=== PATIENT | male | born 1935 | race Caucasian/White ===

== ENCOUNTER → 2018-07-19 13:41 | Outpatient (CLI) | payer OTHER, SELFPAY ==
--- NOTE | 2018-07-19 13:44 | DI.RAD.S_ITS ---
PROCEDURE: XR LUMBAR SPINE MIN 4V INDICATIONS: Eval TECHNIQUE: 5 views of the lumbar spine were acquired. COMPARISON: None. FINDINGS: Bones: 5 nonrib-bearing vertebrae are present. There is straightening of normal lumbar lordosis. Partial bony fusion at L4-5 level is seen. Degenerative disc disease throughout lumbar spine is noted. No acute compression fracture. No suspicious bony lesions. Prior fixation of right sacrum is seen with 2 surgical screws traversing the right sacroiliac joint. Soft tissues: Overlying bowel gas pattern is normal. No suspicious soft tissue calcifications. Oblique images: No pars defects. Right-sided neural foramina narrowing at L4-5 and L5-S1 levels were likely present. IMPRESSION: Degenerative disc disease throughout lumbar spine. No acute compression fracture or spondylolisthesis. Suggestion of right-sided neuroforaminal narrowing in lower lumbar spine. Dictated by: Venkat Cooper M.D. on 07/19/2018 at 15:12 Approved by: Venkat Cooper M.D. on 07/19/2018 at 15:18
--- NOTE | 2018-07-19 13:44 | DI.RAD.S_ITS ---
PROCEDURE: XR CERVICAL SPINE 4V OR 5V INDICATIONS: Eval TECHNIQUE: 5 views of the cervical spine acquired. COMPARISON: None. FINDINGS: Bones: There is bony fusion at C5-6 level. Partial bony union at C4-5 level is also seen. Villalba-white anterolisthesis of C3 on C4 is noted. Degenerative endplate changes are noted throughout cervical spine more prominent at C4-5 and C6-7 levels. Oblique images demonstrate left-sided neuroforaminal narrowing at C4-5 level. No acute compression fracture. Soft tissues: No prevertebral soft tissue swelling. IMPRESSION: Complete bony fusion of C5-6 level and partial bony fusion at C4-5 level. Degenerative disc disease throughout cervical spine. No gross acute compression fracture. Villalba-white anterolisthesis of C3 on C4. Suggestion of left-sided neuroforamina narrowing at C4-5 level. Dictated by: Venkat Cooper M.D. on 07/19/2018 at 15:06 Approved by: Venkat Cooper M.D. on 07/19/2018 at 15:12
== END ==
PROVIDERS: PCP Family Medicine; Visit Provider Physical Medicine & Rehabilitation
DX: M47.22 Other spondylosis with radiculopathy, cervical region (principal); M50.122 Cervical disc disorder at C5-C6 level with radiculopathy; M51.16 Intervertebral disc disorders with radiculopathy, lumbar region; M47.27 Other spondylosis with radiculopathy, lumbosacral region; M43.12 Spondylolisthesis, cervical region; Z98.1 Arthrodesis status
CPT/HCPCS: 72050; 72110; 99214

== ENCOUNTER → 2018-08-01 16:25 | Outpatient (CLI) | payer OTHER, SELFPAY ==
--- NOTE | 2018-08-01 16:28 | DI.MRI.S_ITS ---
PROCEDURE: MR LUMBAR SPINE WO CON INDICATIONS: Eval TECHNIQUE: Noncontrast sagittal T1 spin echo and T2 fast echo, sagittal STIR, axial T1 and T2 fast spin echo through the lumbar spine. In cases with scoliosis, additional coronal T2 fast spin echo may be performed. COMPARISON: [facility], MR, MR LUMBAR SPINE WO CON, 10/29/2015, 9:35. [facility], CR, XR LUMBAR SPINE MIN 4V, 07/19/2018, 13:55. FINDINGS: Image quality: Excellent. Alignment and Curvature: Straightening of the normal lumbar lordosis. Trace retrolisthesis of L1 on L2 and L2 on L3. Chronic partial osseous fusion of the L4-L5 vertebral bodies Bone Marrow: Suboptimal evaluation due to right sacroiliac joint fixation screws and associated susceptibility artifact. Marrow is of normal overall signal. No acute vertebral body compression fractures. Spinal Cord: Conus medullaris terminates at the L1-L2 level. Visualized cord demonstrates normal signal and size. Paraspinous Soft Tissues: Presumed bilateral T2 hyperintense renal cysts. L1-L2: Bilateral facet disease. Broad-based posterior disc bulge and mild central canal narrowing. Mild narrowing of both lateral recesses although symmetric appearance. Mild bilateral foraminal narrowing. No interval change L2-L3: The broad-based posterior disc bulge and bilateral facet arthropathy. Mild dorsal epidural lipomatosis. There is moderate canal stenosis with associated compression of the cauda equina. There is also asymmetric narrowing of the lateral recesses, right greater than left with possible compression of the descending right L3 nerve root. Moderate narrowing of the left neural foramen with possible minimal compression of the exiting nerve root. There is moderate right foraminal stenosis with mild compression of the exiting nerve root. No interval change L3-L4: Broad-based posterior disc bulge and bilateral facet arthropathy. Mild narrowing of the canal. There is asymmetric mild right lateral recess narrowing. Minimal if any left lateral recess narrowing. Mild bilateral foraminal stenoses. No interval change L4-L5: Broad-based posterior disc bulge bilateral facet arthropathy. Mild central canal narrowing. Moderate partial effacement of both lateral recesses with possible compression of the descending nerve roots although the appearance suggests right greater than left. Mild right foraminal narrowing, and moderate left foraminal stenosis with minimal compression of the exiting nerve root. No interval change. L5-S1: No high-grade central canal stenosis. The lateral recesses are not well seen in particular on the right due to field distortion from hardware artifact. However, there is probably unchanged appearance of right paramedian disc protrusion and slight posterior displacement of the descending S1 nerve root on the right. There is probable mild bilateral foraminal narrowing and compression of the exiting left L5 nerve root. Overall, no interval change IMPRESSION: Diffuse lumbar spondylosis and facet. Overall, no definite interval change as detailed above by spinal level Trace retrolisthesis of L1 on L2 and L2 on L3. Dictated by: Jaspreet Harmon M.D. on 08/02/2018 at 8:41 Approved by: Jaspreet Harmon M.D. on 08/02/2018 at 8:53
== END ==
PROVIDERS: PCP Family Medicine; Visit Provider Physical Medicine & Rehabilitation
DX: M47.27 Other spondylosis with radiculopathy, lumbosacral region (principal); M47.26 Other spondylosis with radiculopathy, lumbar region
CPT/HCPCS: 72148

== ENCOUNTER 2018-08-20 09:25 | Outpatient (CLI) | payer OTHER, SELFPAY ==
[2018-08-20] VITALS (9 sets, daily range): BP systolic 101–144; BP diastolic 52–83; PULSE 55–73; RESP 16–18; TEMP 36.1; O2SAT 95–99
--- NOTE | 2018-08-20 09:26 | DI.RAD.S_ITS ---
PROCEDURE: PAIN C/T INTERLAMINAR INJECT INDICATIONS: SPONDYLSIS FINDINGS: Fluoroscopic spot filming was performed to verify placement of spinal needles at the C6-C7 level(s), as labeled on the films. Appropriate location(s) of the needle tip(s) was confirmed by injection of iodinated contrast. IMPRESSION: Fluoroscopy for pain management. Dictated by: Devante Andres M.D. on 08/20/2018 at 11:41 Approved by: Devante Andres M.D. on 08/20/2018 at 12:03
[2018-08-20] MEDS: MIDAZOLAM 5 MG/5 ML VIAL IV (10:22)
--- NOTE | 2018-08-20 10:25 | PC.NURSE ---
Pt returned from procedure awake and alert, able to move from W/C to chair with standby assist. Resumed monitoring from Becca BAKER.
[2018-08-20] MEDS: DEXAMETHASONE 10 MG/ML VIAL 20 MG INJ (10:28)
[2018-08-20] MEDS: IOPAMIDOL 15 ML VIAL 3 ML INJ (10:28)
--- NOTE | 2018-08-20 10:32 | PC.NURSE ---
ASSISTING PT OFF TABLE AND TRANSPORTING TO POST PROC AREA IN STABLE CONDITION
--- NOTE | 2018-08-20 10:35 | PM.PROC.1 ---
Procedures Date/Time Date of procedure: 08/20/18 Time of procedure: 10:35 General Procedure description: PREOP DIAGNOSIS 1. CERVICAL STENOSIS, 2. CERVICAL HNP WITH UPPER EXTREMITY RADICULAR FEATURES, POST OP DIAGNOSIS 1. CERVICAL STENOSIS, 2. CERVICAL HNP WITH UPPER EXTREMITY RADICULAR FEATURES, PROCEDURES 1. FLUORSCOPICALLY GUIDED CONTRAST CONTROLLED INTERLAMINAR EPIDURAL STEROID INJECTION - C6/7 TL HELENE PHYSICIAN: Kenton Allen, DO INDICATIONS Arvid is referred by Dr. Bowser for treatment of Cervical Stenosis with Upper Extremity Paresthesias. FINDINGS Cervical Stenosis due to disc deterioration and nerve root irritation and nerve root irritation DESCRIPTION OF PROCEDURE Fluoroscopically guided, contrast-controlled C6/7 translaminar epidural steroid injection with conscious sedation. Following denial of allergy and review of potential side effects and complications, including, but not necessarily limited to, infection, allergic reaction, local tissue breakdown, temporary as well as permanent nerve injury, stroke, paralysis, and possible , the patient indicated that patient understood and agreed to proceed. An informed consent document was signed by the patient, witnessed by a nurse, and placed in the patient's chart. Additionally, other treatment options including modalities, medications, and physical therapy were reviewed with the patient. After review of previous anaesthesic history and IV conscious sedation the patient was deemed safe to proceed with todays procedure with IV conscious sedation as ASA class II designation. Safety time-out was performed to confirm patient ID, procedure to be performed and site of procedure. IV sedation was accomplished with a combination of 3mg of Versed administered by the RN after DO order, titrated to patient comfort during the course of the procedure while the patient remained responsive to all verbal commands. In the prone position, following sterile prep and drape of the cervical region, the C6/7 translaminar space was identified fluoroscopically. The skin was anesthetized via a 25-gauge 1.5-inch needle with 1% lidocaine solution. At this point, a 25-gauge, 2.5-inch short bevel spinal needle was atraumatically introduced and advanced under fluoroscopic guidance into epidural space at the C6/7 translaminar space. Depth was confirmed on lateral view. Radiological data, including multiple fluoroscopic views of the cervical spine, reveal a spinal needle at the C6/7 translaminar space. Lateral views then show placement of the needle in the epidural space. Subsequent views show contrast material flowing superiorly and inferiorly in the epidural space. DSA fluoroscopy with live contrast injection, once again, confirmed no vascular or intrathecal uptake. At this point, using loss of resistance technique with saline and air, the epidural space was entered. Following negative aspiration, injection of approximately 1.5 cc of Isovue-200 with live fluoroscopy in the AP view confirmed epidural flow in the epidural space without vascular or intrathecal uptake observed. Subsequently, a test dose of 1 cc of 1% lidocaine solution was injected and patient was observed for two minutes without signs or symptoms of complications, including abdominal pain, shortness of breath, bilateral upper or lower extremity weakness, nausea and vomiting, prior to steroid injection. At this point, 2cc or 20mg of dexamethasone was then injected without incident. The patient tolerated the procedure well without signs or symptoms of complications prior to being transferred to the recovery area for further monitoring, The patient was then transferred to the recovery area where they were observed for an appropriate period of time after the injection. The patient reported a VAS score of 6 prior to the procedure and a post-procedure VAS of 0. Total Fluoroscopy Time: 37.0 seconds Total Conscious Time: 24min POST OP INSTRUCTIONS The patient was provided a Pain Log to continue to record their response to the target-specific procedure prior to follow-up visit with the referring provider. Additionally, specific post-injection care instructions and a contact number to our office were provided if concerns arise regarding possible complications associated with the procedure are suspected. Kenton Allen DO Complications: none
--- NOTE | 2018-08-20 11:06 | PC.NURSE ---
Pt Returned from post procedure awake and alert, able to move from W/C to Chair with standby assist. Resumed monitoring from Becca BAKER.
--- NOTE | 2018-08-21 16:27 | PC.NURSE ---
Follow up call made for post Interlaminar HELENE . Pt reports he is doing good. He also notes the red face but realized it was related to the steroids so wasn't alarmed.
== END 2018-08-20 11:01 ==
PROVIDERS: PCP Family Medicine; Visit Provider Physical Medicine & Rehabilitation
DX: M50.123 Cervical disc disorder at C6-C7 level with radiculopathy (principal); M48.02 Spinal stenosis, cervical region; M47.22 Other spondylosis with radiculopathy, cervical region; R20.2 Paresthesia of skin; Z98.1 Arthrodesis status
CPT/HCPCS: 62321; 99152; J1100; J2250; J3010

== ENCOUNTER 2018-11-14 13:00 | Outpatient (RCR) | payer OTHER, SELFPAY ==
--- NOTE | 2018-11-14 15:48 | PT.OIE ---
Current Diagnoses Mixed incontinence (11/14/18) Provider Visit Care Team Role Provider Type Kirill Bowser MD Primary Care Provider Non-Staff Specialty: Medical Address: [address] [place], [address] Email: Emmanuel Roy MD Attending Provider Physician Specialty: Urology Address: [address] [place] [address], [phone] Email: Physical Therapy Initial Evaluation PT-OP-A Visit Information Start: 11/12/18 13:01 Freq: Status: Active Protocol: Document 11/12/18 13:00 [facility] (Rec: 11/14/18 11:12 [facility] [email or web address]) Out-Patient Physical Therapy Visit Information Visit Information Visit Type Initial Evaluation Visit Note 83 year old male referred to PT for pelvic floor strengthening as he is experiencing mixed urinary incontinence. He is restricting his fluids especially in the evening due to nocturia. He has a history of malignant neoplasm of the prostate. He underwent bladder neck surgery and prostatectomy 02/21/2010. At his last MD visit which was 3 weeks ago he was given pelvic floor strengthening exercises and he feels these are already helping. Visit Start Time 13:00 Visit Stop Time 13:45 Total Visit Minutes 45 Visit Number 1 Evaluation Information Evaluation Date 11/12/18 PT-OP-B Current Condition Start: 11/12/18 13:01 Freq: Status: Active Protocol: Document 11/12/18 13:00 [facility] (Rec: 11/14/18 11:12 [facility] [email or web address]) Current Condition History of Current Condition Onset Date 2009 Current Complaints mixed urinary incontinence History of Current Condition 83 year old male referred to PT for pelvic floor strengthening as he is experiencing mixed urinary incontinence. He is restricting his fluids especially in the evening due to nocturia. He has a history of malignant neoplasm of the prostate. He underwent bladder neck surgery and prostatectomy 02/21/2010. At his last MD visit which was 3 weeks ago he was given pelvic floor strengthening exercises and he feels these are already helping. He was wearing a large pad and changing it 3-4 times per day but now he is down to changing his pad 1 time per day. Leakage is increased with exercise, changing positions such as sit -stand, and a strong urge to void. He leaks in al positions. He is waking 1 time per night now which is much better than it had been. Prior Treatments and Tests PVR 171cc, ASHLEIGH score is 1/25 for severe ED, IPSS is 10/35 Treatment Goals Patient/Caregiver Goals Goals include decreasing urinary incontinence overall with activity level Current Functional Impairments (Reported) Functional Limitations- ADL's limited in activities such as mowing the lawn and activities that require straining Arvid will experince leakage. PT-OP-F Manual Assessment Start: 11/12/18 13:01 Freq: Status: Active Protocol: Document 11/12/18 13:00 [facility] (Rec: 11/14/18 11:12 [facility] [email or web address]) Manual Assessments Soft Tissue Assessment Soft Tissue Mobility Assessment good mobility across the abdominal fascia and supra pubic region PT-OP-I Pelvic Floor Start: 11/12/18 13:01 Freq: Status: Active Protocol: Document 11/12/18 13:00 [facility] (Rec: 11/14/18 11:12 [facility] [email or web address]) Pelvic Floor Assessment Urine Pelvic Floor Surgery Yes Urinary Symptoms Urge Sensation Leakage Size Medium Leakage Cause Cough Exercise Lifting Sneeze Urge Leaks Per Day 3-4 Voiding Frequency every 2-3 hours Nocturia yes Pads Used In 24 Hours 2 Urine Pad Type Depends Contraction Ability Voluntary Contraction Weak Voluntary Relaxation Moderate Manual Muscle Testing Left 3 Manual Muscle Testing Right 3 Manual Muscle Testing Anterior 3 Manual Muscle Testing Posterior 3 Muscle Endurance (Seconds) 4 PT-OP-J Posture/Palpation/Skin Start: 11/12/18 13:01 Freq: Status: Active Protocol: Document 11/12/18 13:00 [facility] (Rec: 11/14/18 11:12 [facility] [email or web address]) Palpation Assessment Location One Palpation Location pelvic floor and subrapubic region Palpation Details palpation of the pelvic floor externally for muscle strength testing, able to find the pelvic floor and facilitate a contraction but difficulty holding a contraction past 4 second hold time. PT-OP-M Strength Start: 11/12/18 13:01 Freq: Status: Active Protocol: Document 11/12/18 13:00 [facility] (Rec: 11/14/18 11:12 [facility] [email or web address]) Trunk Strength Trunk Manual Muscle Testing Testing Position Supine Flexion 3 Fair Core Stabilization poor core stabilization of the transverse abdominal musculature, the patient tends to bulge his abdominal wall out with positional changes PT-OP-Q Treatments Start: 11/12/18 13:01 Freq: Status: Active Protocol: Document 11/12/18 13:00 [facility] (Rec: 11/14/18 15:48 [facility] [email or web address]) Therapeutic Exercises Supine Exercises 2 Supine Exercise Name pelvic floor quick contractions Reps/Minutes x 10 reps 1 Supine Exercise Name pelvic floor 10 second holds Reps/Minutes 10 reps x 10 second hold PT-OP-T Assessment and Plan Start: 11/12/18 13:01 Freq: Status: Active Protocol: Document 11/12/18 13:00 [facility] (Rec: 11/14/18 11:12 [facility] [email or web address]) Physical Therapy Assessment Rehab Potential Rehabilitation Potential Good Impairments Impairments Activity Tolerance Functional Activities Functional Mobility Strength Goals Three Impairment Decreased core stabilization and straining with sit-stand Short Term Goal (STG) Tone is able to properly tighten his lower abdominals instead of increasing intra- abdominal pressure with sit- stand and transitional movements STG Duration 4 weeks Substation Technician Goal (LTG) Tone has improved Inner core stabilization and is able to transition from sit-stand without any leakage LTG Duration 8 weeks Two Impairment Decreased pelvic floor endurance, difficulty holding >4 seconds Short Term Goal (STG) Tone is able to sustain a pelvic floor contraction in supine x 10 seconds STG Duration 4 weeks Care Home Goal (LTG) Tone is able to sustain a pelvic floor contraction in standing x 10 seconds LTG Duration 8 weeks Four Impairment Difficulty with transfers such as sit-stand, strains through the abdominals Substation Technician Goal (LTG) Tone is able to perform 10 sit-stand exercises without use of hands and with a pelvic floor contraction to stabilize his bladder. He is able to perform this exercise without leakage LTG Duration 8 weeks One Impairment Urinary urge and stress incontinence Substation Technician Goal (LTG) With pelvic floor strengthening, Tone has overall decreased c/o urinary incontinence and leakage and is able to decrease to 0-1 pad use per day LTG Duration 8 weeks Assessment Summary Assessment Tone presents to phyiscal therapy today with signs and symptoms of urinary incontinence and pelvic floor weakness. His prostate surgery was in 2009 however he had not started pelvic floor strengthening exercises until he saw his doctor approximately 3 weeks ago. He was given kegel exercises at that time and reports he has seen a lot of progress in these past three weaks. He has been able to decrease from 3-4 pads per day to 1-2 pads per day. He seeks further guidance on strengthening his pelvic floor. With examination today Tone is able to facilitate his pelvic floor but he has difficulty holding greater than 5 seconds . He reports he leaks with transitional movements such as sit-stand or getting out of the car. When looking at his strategy for sit-stand transfer he tends to bulge out his abdominal wall and strain . We worked today on lower abdominal stabilization as well as pelvic floor endurance training. He will benefit from PT focusing on core stabilization, pelvic floor endurance training, functional movements with pelvic floor engagement and bladder retraining for urgency. Physical Therapy Plan Frequency and Duration Frequency of Treatment 1x/Week Duration of Treatment 8 weeks Plan of Care Start Date 11/12/18 Plan of Care End Date 01/14/19 Therapeutic Interventions Therapeutic Interventions Home Exercise Program Neuromuscular Re-education Self-Care/Home Management Therapeutic Exercises Next Visit Focus/Plan Next Note Type Treatment Note Next Visit Plan review pelvic floor long holds and progress to adding in hip stabilization and stabilization with sit-stand
--- NOTE | 2018-11-14 15:49 | PT.OPPOC ---
Current Diagnoses Mixed incontinence (11/14/18) Provider Visit Care Team Role Provider Type Kirill Bowser MD Primary Care Provider Non-Staff Specialty: Medical Address: [address] [place], [address] Email: Emmanuel Roy MD Attending Provider Physician Specialty: Urology Address: [facility] [place], [address] Email: Plan Of Care PT-OP-T Assessment and Plan Start: 11/12/18 13:01 Freq: Status: Active Protocol: Document 11/12/18 13:00 [facility] (Rec: 11/14/18 11:12 [facility] [email or web address]) Physical Therapy Assessment Rehab Potential Rehabilitation Potential Good Impairments Impairments Activity Tolerance Functional Activities Functional Mobility Strength Goals Three Impairment Decreased core stabilization and straining with sit-stand Short Term Goal (STG) Tone is able to properly tighten his lower abdominals instead of increasing intra- abdominal pressure with sit- stand and transitional movements STG Duration 4 weeks Novelty Twister Operator Goal (LTG) Tone has improved Inner core stabilization and is able to transition from sit-stand without any leakage LTG Duration 8 weeks Two Impairment Decreased pelvic floor endurance, difficulty holding >4 seconds Short Term Goal (STG) Tone is able to sustain a pelvic floor contraction in supine x 10 seconds STG Duration 4 weeks Novelty Twister Operator Goal (LTG) Tone is able to sustain a pelvic floor contraction in standing x 10 seconds LTG Duration 8 weeks Four Impairment Difficulty with transfers such as sit-stand, strains through the abdominals Mcc Goal (LTG) Tone is able to perform 10 sit-stand exercises without use of hands and with a pelvic floor contraction to stabilize his bladder. He is able to perform this exercise without leakage LTG Duration 8 weeks One Impairment Urinary urge and stress incontinence Novelty Twister Operator Goal (LTG) With pelvic floor strengthening, Tone has overall decreased c/o urinary incontinence and leakage and is able to decrease to 0-1 pad use per day LTG Duration 8 weeks Assessment Summary Assessment Tone presents to physical therapy today with signs and symptoms of urinary incontinence and pelvic floor weakness. His prostate surgery was in 2009 however he had not started pelvic floor strengthening exercises until he saw his doctor approximately 3 weeks ago. He was given kegel exercises at that time and reports he has seen a lot of progress in these past three weeks. He has been able to decrease from 3-4 pads per day to 1-2 pads per day. He seeks further guidance on strengthening his pelvic floor. With examination today Tone is able to facilitate his pelvic floor but he has difficulty holding greater than 5 seconds . He reports he leaks with transitional movements such as sit-stand or getting out of the car. When looking at his strategy for sit-stand transfer he tends to bulge out his abdominal wall and strain . We worked today on lower abdominal stabilization as well as pelvic floor endurance training. He will benefit from PT focusing on core stabilization, pelvic floor endurance training, functional movements with pelvic floor engagement and bladder retraining for urgency. Physical Therapy Plan Frequency and Duration Frequency of Treatment 1x/Week Duration of Treatment 8 weeks Plan of Care Start Date 11/12/18 Plan of Care End Date 01/14/19 Therapeutic Interventions Therapeutic Interventions Home Exercise Program Neuromuscular Re-education Self-Care/Home Management Therapeutic Exercises Next Visit Focus/Plan Next Note Type Treatment Note Next Visit Plan review pelvic floor long holds and progress to adding in hip stabilization and stabilization with sit-stand Plan of Care Dates Plan of Care Start Date 11/12/18 Plan of Care End Date 01/14/19 Please Sign and Return: I have reviewed this Plan of Care and certify that the skilled therapy services above are required to meet the patient?s needs. Physician Signature Date Printed Name and Credentials Clinical Instructor Signature Printed Name and Credentials
--- NOTE | 2018-11-14 15:58 | PT.OTN ---
Current Diagnoses Mixed incontinence (11/14/18) Physical Therapy Treatment Note PT-OP-A Visit Information Start: 11/12/18 13:01 Freq: Status: Active Protocol: Document 11/14/18 15:52 [facility] (Rec: 11/14/18 15:58 [facility] [email or web address]) Out-Patient Physical Therapy Visit Information Visit Information Visit Type Treatment Note Visit Start Time 13:00 Visit Stop Time 13:45 Total Visit Minutes 45 Visit Number 2 Evaluation Information Evaluation Date 11/12/18 PT-OP-B Current Condition Start: 11/12/18 13:01 Freq: Status: Active Protocol: Document 11/12/18 13:00 [facility] (Rec: 11/14/18 11:12 [facility] [email or web address]) Current Condition History of Current Condition Onset Date 2009 Current Complaints mixed urinary incontinence History of Current Condition 83 year old male referred to PT for pelvic floor strengthening as he is experiencing mixed urinary incontinence. He is restricting his fluids especially in the evening due to nocturia. He has a history of malignant neoplasm of the prostate. He underwent bladder neck surgery and prostatectomy 02/21/2010. At his last MD visit which was 3 weeks ago he was given pelvic floor strengthening exercises and he feels these are already helping. He was wearing a large pad and changing it 3-4 times per day but now he is down to changing his pad 1 time per day. Leakage is increased with exercise, changing positions such as sit -stand, and a strong urge to void. He leaks in al positions. He is waking 1 time per night now which is much better than it had been. Prior Treatments and Tests PVR 171cc, ASHLEIGH score is 1/25 for severe ED, IPSS is 10/35 Treatment Goals Patient/Caregiver Goals Goals include decreasing urinary incontinence overall with activity level Current Functional Impairments (Reported) Functional Limitations- ADL's limited in activities such as mowing the lawn and activities that require straining Arvchristy will experince leakage. PT-OP-C Subjective Start: 11/12/18 13:01 Freq: Status: Active Protocol: Document 11/14/18 15:52 [facility] (Rec: 11/14/18 15:58 [facility] [email or web address]) OP-PT Subjective Patient Comments Patient Comments Tone reports he has been working on his exercises at home and trying to get to 10 second hold time PT-OP-F Manual Assessment Start: 11/12/18 13:01 Freq: Status: Active Protocol: Document 11/12/18 13:00 [facility] (Rec: 11/14/18 11:12 [facility] [email or web address]) Manual Assessments Soft Tissue Assessment Soft Tissue Mobility Assessment good mobility across the abdominal fascia and supra pubic region PT-OP-I Pelvic Floor Start: 11/12/18 13:01 Freq: Status: Active Protocol: Document 11/12/18 13:00 [facility] (Rec: 11/14/18 11:12 [facility] [email or web address]) Pelvic Floor Assessment Urine Pelvic Floor Surgery Yes Urinary Symptoms Urge Sensation Leakage Size Medium Leakage Cause Cough Exercise Lifting Sneeze Urge Leaks Per Day 3-4 Voiding Frequency every 2-3 hours Nocturia yes Pads Used In 24 Hours 2 Urine Pad Type Depends Contraction Ability Voluntary Contraction Weak Voluntary Relaxation Moderate Manual Muscle Testing Left 3 Manual Muscle Testing Right 3 Manual Muscle Testing Anterior 3 Manual Muscle Testing Posterior 3 Muscle Endurance (Seconds) 4 PT-OP-J Posture/Palpation/Skin Start: 11/12/18 13:01 Freq: Status: Active Protocol: Document 11/12/18 13:00 [facility] (Rec: 11/14/18 11:12 [facility] [email or web address]) Palpation Assessment Location One Palpation Location pelvic floor and subrapubic region Palpation Details palpation of the pelvic floor externally for muscle strength testing, able to find the pelvic floor and facilitate a contraction but difficulty holding a contraction past 4 second hold time. PT-OP-M Strength Start: 11/12/18 13:01 Freq: Status: Active Protocol: Document 11/12/18 13:00 [facility] (Rec: 11/14/18 11:12 [facility] [email or web address]) Trunk Strength Trunk Manual Muscle Testing Testing Position Supine Flexion 3 Fair Core Stabilization poor core stabilization of the transverse abdominal musculature, the patient tends to bulge his abdominal wall out with positional changes PT-OP-Q Treatments Start: 11/12/18 13:01 Freq: Status: Active Protocol: Document 11/14/18 15:52 [facility] (Rec: 11/14/18 15:58 [facility] [email or web address]) Therapeutic Exercises Supine Exercises 4 Supine Exercise Name ball squeeze Reps/Minutes x 10 reps 3 Supine Exercise Name elevator floor exercise for coordination and eccentric control Reps/Minutes x 5 2 Supine Exercise Name pelvic floor quick contractions Reps/Minutes x 10 reps 1 Supine Exercise Name pelvic floor 10 second holds Reps/Minutes 10 reps x 10 second hold Sidelying Exercises 1 Sidelying Exercise Name clam shells Reps/Minutes 3 x 10 reps Other Exercises 1 Other Exercise Name standing squats with pelvic floor engagement on the return to stand Reps/Minutes x 10 reps Self-Care/Home Management Treatment Education Patient Education [employer] Home Exercise Program Other Education education on bracing with the pelvic floor prior to transitional movements, coughing, sneezing PT-OP-T Assessment and Plan Start: 11/12/18 13:01 Freq: Status: Active Protocol: Document 11/14/18 15:52 [facility] (Rec: 11/14/18 15:58 [facility] [email or web address]) Physical Therapy Assessment Assessment Summary Assessment Good tolerance today for new exercises, able to hold closer to 10 seconds now for pelvic floor activiation. Arvchristy feels he will try these exercises on his own now and will call back if he needs further guidance with his exercises. Physical Therapy Plan Frequency and Duration Frequency of Treatment 1x/Week Duration of Treatment 8 weeks Plan of Care Start Date 11/12/18 Plan of Care End Date 01/14/19 Therapeutic Interventions Therapeutic Interventions Home Exercise Program Neuromuscular Re-education Self-Care/Home Management Therapeutic Exercises Next Visit Focus/Plan Next Note Type Treatment Note Next Visit Plan review established HEP and progress as Arvid can tolerate
--- NOTE | 2018-12-24 14:23 | PT.OPDS ---
Current Diagnoses Mixed incontinence (11/14/18) Visit Care Team Role Provider Type Kirill Bowser MD Primary Care Provider Non-Staff Specialty: Medical Address: [address] [place], [address] Email: Emmanuel Roy MD Attending Provider Physician Specialty: Urology Address: [address] [place] [address], [id number] Email: Visit Number Visit Number 2 Discharge Summary PT-OP-B Current Condition Start: 11/12/18 13:01 Freq: Status: Active Protocol: Document 11/12/18 13:00 [facility] (Rec: 11/14/18 11:12 [facility] [email or web address]) Current Condition History of Current Condition Onset Date 2009 Current Complaints mixed urinary incontinence History of Current Condition 83 year old male referred to PT for pelvic floor strengthening as he is experiencing mixed urinary incontinence. He is restricting his fluids especially in the evening due to nocturia. He has a history of malignant neoplasm of the prostate. He underwent bladder neck surgery and prostatectomy 02/21/2010. At his last MD visit which was 3 weeks ago he was given pelvic floor strengthening exercises and he feels these are already helping. He was wearing a large pad and changing it 3-4 times per day but now he is down to changing his pad 1 time per day. Leakage is increased with exercise, changing positions such as sit -stand, and a strong urge to void. He leaks in al positions. He is waking 1 time per night now which is much better than it had been. Prior Treatments and Tests PVR 171cc, ASHLEIGH score is 1/25 for severe ED, IPSS is 10/35 Treatment Goals Patient/Caregiver Goals Goals include decreasing urinary incontinence overall with activity level Current Functional Impairments (Reported) Functional Limitations- ADL's limited in activities such as mowing the lawn and activities that require straining Tone will experince leakage. PT-OP-C Subjective Start: 11/12/18 13:01 Freq: Status: Active Protocol: Document 11/14/18 15:52 [facility] (Rec: 11/14/18 15:58 [facility] [email or web address]) OP-PT Subjective Patient Comments Patient Comments Tone reports he has been working on his exercises at home and trying to get to 10 second hold time PT-OP-F Manual Assessment Start: 11/12/18 13:01 Freq: Status: Active Protocol: Document 11/12/18 13:00 [facility] (Rec: 11/14/18 11:12 [facility] [email or web address]) Manual Assessments Soft Tissue Assessment Soft Tissue Mobility Assessment good mobility across the abdominal fascia and supra pubic region PT-OP-I Pelvic Floor Start: 11/12/18 13:01 Freq: Status: Active Protocol: Document 11/12/18 13:00 [facility] (Rec: 11/14/18 11:12 [facility] [email or web address]) Pelvic Floor Assessment Urine Pelvic Floor Surgery Yes Urinary Symptoms Urge Sensation Leakage Size Medium Leakage Cause Cough,Exercise,Lifting,Sneeze, Urge Leaks Per Day 3-4 Voiding Frequency every 2-3 hours Nocturia yes Pads Used In 24 Hours 2 Urine Pad Type Depends Contraction Ability Voluntary Contraction Weak Voluntary Relaxation Moderate Manual Muscle Testing Left 3 Manual Muscle Testing Right 3 Manual Muscle Testing Anterior 3 Manual Muscle Testing Posterior 3 Muscle Endurance (Seconds) 4 PT-OP-J Posture/Palpation/Skin Start: 11/12/18 13:01 Freq: Status: Active Protocol: Document 11/12/18 13:00 [facility] (Rec: 11/14/18 11:12 [facility] [email or web address]) Palpation Assessment Location One Palpation Location pelvic floor and subrapubic region Palpation Details palpation of the pelvic floor externally for muscle strength testing, able to find the pelvic floor and facilitate a contraction but difficulty holding a contraction past 4 second hold time. PT-OP-M Strength Start: 11/12/18 13:01 Freq: Status: Active Protocol: Document 11/12/18 13:00 [facility] (Rec: 11/14/18 11:12 [facility] [email or web address]) Trunk Strength Trunk Manual Muscle Testing Testing Position Supine Flexion 3 Fair Core Stabilization poor core stabilization of the transverse abdominal musculature, the patient tends to bulge his abdominal wall out with positional changes PT-OP-T Assessment and Plan Start: 11/12/18 13:01 Freq: Status: Active Protocol: Document 12/24/18 14:21 [facility] (Rec: 12/24/18 14:23 [facility] [email or web address]) Physical Therapy Plan Discharge Physical Therapy Discharge Reasons No Longer Attending PT Discharge Comments At the time of Tone's last visit on 11/12/18 he had wanted to try doing the exercises on his own. I have not heard back from him to schedule additional visits so at this time he will be discharged to a independent home exercise program. He was feeling improvments in his ability to feel his pelvic floor and felt stronger at the time of his last visit.
== END 2018-12-25 16:35 | disposition home or self-care (01) ==
LOC: PHYS 13:00
PROVIDERS: PCP Family Medicine; Visit Provider Specialist
DX: N39.46 Mixed incontinence (principal)
CPT/HCPCS: 97110; 97161; 97535

== ENCOUNTER 2019-04-01 13:31 | Outpatient (CLI) | payer OTHER, SELFPAY ==
[2019-04-01] VITALS (7 sets, daily range): BP systolic 129–158; BP diastolic 54–72; PULSE 56–70; RESP 16–18; TEMP 36.4; O2SAT 94–97
--- NOTE | 2019-04-01 13:32 | DI.RAD.S_ITS ---
PROCEDURE: PAIN L/S FACET INJ/BLK 1ST [facility] COMPARISON: None. INDICATIONS: SPONDYLOSIS FINDINGS: 6 intraoperative fluoroscopy images demonstrate needle placement under fluoroscopy at L2-L3 and els left L4 facet joints bilaterally. IMPRESSION: Fluoroscopy for pain management. Dictated by: Devante Andres M.D. on 04/01/2019 at 19:12 Approved by: Devante Andres M.D. on 04/01/2019 at 19:12
[2019-04-01] MEDS: MIDAZOLAM 5 MG/5 ML VIAL IV (14:44)
[2019-04-01] MEDS: fentaNYL 100 MCG/2 ML INJ 50 MCG IV (14:45)
[2019-04-01] MEDS: IOPAMIDOL 15 ML VIAL 3 ML INJ (14:48)
[2019-04-01] MEDS: BETAMETHASONE 30 MG/5 ML MDV 12 MG INJ (14:48)
[2019-04-01] MEDS: LIDOCAINE 1% 20 ML 10 ML INJ (14:49)
[2019-04-01] MEDS: BUPIVACAINE 0.5% (PF) VIAL 2 ML INJ (14:49)
--- NOTE | 2019-04-01 14:54 | PC.NURSE ---
ASSISTING PT OFF TABLE AND TRANSPORTING TO POST PROC AREA IN STABLE CONDITION. PASSING RN CARE OF PT TO MART Solis RN.
--- NOTE | 2019-04-01 15:30 | PC.NURSE ---
VERSED AND FENTANYL PREPARED AND ADMINISTERED BY THIS RN. ALL OTHER MEDS PREPARED AND ADMINISTERED BY DR. PRIDE.
--- NOTE | 2019-04-01 15:48 | P.PCN_ITS ---
Procedures Date/Time Date of procedure: 04/01/19 Time of procedure: 15:51 General Procedure description: PREOP DIAGNOSIS 1. FACET ARTHROPATHY 2. AXIAL LBP 3. MULTILEVEL DDD POST OP DIAGNOSIS 1. FACET ARTHROPATHY 2. AXIAL LBP 3. MULTILEVEL DDD PROCEDURES 1. FLUORSCOPICALLY GUIDED CONTRAST CONTROLLED FACET JOINT INJECTIONS BILATERAL L2/3,L3/4 PHYSICIAN: Kenton Allen, DO INDICATIONS Arvid is referred by Dr. Bowser for treatment of Axial LBP FINDINGS Multilevel Facet Arthropathy with Clinically significant axial LBP DESCRIPTION OF PROCEDURE Fluoroscopically guided, contrast-controlled bilateral L4/5, L5/S1 facet joint injections. Following review of allergy and review of potential side effects and complications, including, but not necessarily limited to, infection, allergic reaction, local tissue breakdown, stroke, temporary or permanent nerve injury, paralysis, and possible , the patient indicated that the patient understood and agreed to proceed. An informed consent document was signed by the patient, witnessed by a nurse, and placed in the patient's chart. Additionally, other treatment options including medications, modalities, and physical therapy were reviewed with the patient. After review of previous anaesthesic history and IV conscious sedation the patient was deemed safe to proceed with todays procedure with IV conscious sedation as ASA class II designation. Safety time-out was performed to confirm patient ID, procedure to be performed and site of procedure. IV sedation was accomplished with a combination of 2mg of Versed and 50mcg of Fentanyl was administered by the RN after DO order, titrated to patient comfort during the course of the procedure while the patient remained responsive to all verbal commands In the prone position, following sterile prep and drape of the lumbar region, the posterior aspect of the L2/3, L3/4 facet joints were identified fluoroscopically. The skin was anesthetized via a 25-gauge 1.5-inch needle with 1% lidocaine solution into the corresponding facet joints. At this point, a 22- gauge 3.5-inch spinal needle was atraumatically introduced and advanced under fluoroscopic guidance into the corresponding facet joints. Following negative aspiration, injections of approximately 0.2cc of Isovue 200 confirmed interarticular placement without vascular uptake. The identical procedure was then performed at the L2/3, L3/4 facet joints on the left. Radiological data, including multiple fluoroscopic views of the lumbosacral spine, reveal a spinal needle at the L2/3, L3/4 facet joints bilaterally. Subsequent views show flow of contrast material both superiorly and inferiorly within the joint space without vascular or intrathecal uptake. At this point, a total of 0.5cc including a mixture of 0.25cc Marcaine and 0.25cc betamethasone was injected without complication into each of the corresponding facet joints. The patient tolerated the procedure well without signs or symptoms of complications prior to transfer to the recovery area continued monitoring without incident. The patient was then transferred to the recovery area where they were observed for an appropriate period of time after the injection. The patient reported a VAS score of 7 prior to the procedure and a post- procedure VAS of 1. Total Fluoroscopy Time: 20.3 seconds Total Conscious Sedation Time: 24min POST OP INSTRUCTIONS The patient was provided a Pain Log to continue to record their response to the target-specific procedure prior to follow-up visit with their referring physician. Additionally, specific post-injection care instructions and a contact number to our office were provided if concerns arise regarding possible complications associated with the procedure are suspected. Kenton Allen DO Complications: none
== END 2019-04-01 15:15 | disposition home or self-care (01) ==
LOC: RAD 13:31
PROVIDERS: PCP Family Medicine; Visit Provider Physical Medicine & Rehabilitation
DX: M47.816 Spondylosis without myelopathy or radiculopathy, lumbar region (principal); M54.5 Low back pain; M51.36 Other intervertebral disc degeneration, lumbar region
CPT/HCPCS: 64493; 64494; 99152; J0702; J2250; J3010

== ENCOUNTER 2019-05-27 14:13 | Outpatient (CLI) | payer OTHER, SELFPAY ==
[2019-05-27] VITALS (12 sets, daily range): BP systolic 134–166; BP diastolic 65–92; PULSE 58–72; RESP 16–18; TEMP 36.1; O2SAT 95–98
--- NOTE | 2019-05-27 14:14 | DI.RAD.S_ITS ---
PROCEDURE: PAIN L/S FACET INJ/BLK 1ST [facility] COMPARISON: , XA, PAIN L/S FACET INJ/BLK 1ST [facility], 04/01/2019, 14:44. INDICATIONS: SPONDYLOSIS FINDINGS: 6 total views show appropriate needle tip localization for bilateral L2, L3, and L4 medial branch block procedures (6 separate localizations). IMPRESSION: Successful 6 level localization procedure for medial branch blocks. Dictated by: Peter Jolly M.D. on 05/27/2019 at 16:01 Approved by: Peter Jolly M.D. on 05/27/2019 at 16:03
[2019-05-27] MEDS: MIDAZOLAM 5 MG/5 ML VIAL IV (15:21)
[2019-05-27] MEDS: IOPAMIDOL 15 ML VIAL 3 ML INJ (15:28)
[2019-05-27] MEDS: BUPIVACAINE 0.5% (PF) VIAL 2 ML INJ (15:29)
[2019-05-27] MEDS: LIDOCAINE 1% 20 ML 10 ML INJ (15:29)
--- NOTE | 2019-05-27 15:34 | PC.NURSE ---
ASSISTING PT OFF TABLE AND TRANSPORTING TO POST PROC AREA IN STABLE CONDITION. PASSING RN CARE OF PT OFF TO JAVAD Ponce RN.
--- NOTE | 2019-05-27 15:37 | P.PCN_ITS ---
Procedures Date/Time Date of procedure: 05/27/19 Time of procedure: 15:37 General Procedure description: Procedure description: 1. FACET ARTHROPATHY PROCEDURES: 1. BILATERAL- L4, L5 and S1 DIAGNOSTIC MB BLOCKS with LA Anesthetic PHYSICIAN: Kenton Allen DO INDICATIONS Arvid is referred by Dr. Bowser for treatment of Bilateral Axial LBP. DESCRIPTION OF PROCEDURE Fluoroscopically guided, contrast-controlled bilateral L4, L5 and S1 medial branch blocks with 0.5cc of 0.5% Marcaine. Following review of allergy and review of potential side effects and complications, including, but not necessarily limited to, infection, allergic reaction, local tissue breakdown, nerve injury, paralysis, stroke and possible , the patient indicated that the patient understood and agreed to proceed. An informed consent document was signed by the patient, witnessed by a nurse, and placed in the patient's chart. After review of previous anaesthesic history and IV conscious sedation the patient was deemed safe to proceed with todays procedure with IV conscious sedation as ASA class II designation. Safety time-out was performed to confirm patient ID, procedure to be performed and site of procedure. IV sedation was accomplished with a combination of 2mg of Versed was administered by the RN after DO order, titrated to patient comfort during the course of the procedure while the patient remained responsive to all verbal commands In the prone position, following sterile prep and drape of the lumbar region, the right L4, L5 and S1 anatomical location of the medial branch of the dorsal ramus was identified fluoroscopically. Subsequently an anesthetic skin wheal using 1% lidocaine solution was initiated at each of the anatomical spots. Subsequently then a 25-gauge 3.5-inch spinal needle was atraumatically introduced and advanced under fluoroscopic guidance at each of the corresponding sites at the right L4, L5 and S1 MB. After negative aspiration, 0.2cc of Isovue 200 was injected, confirming placement without vascular or intrathecal uptake. Subsequently then 0.5cc of 0.5% Marcaine solution was injected at each of the corresponding sites at the right L4, L5 and S1 medial branch locations. The identical procedure was replicated on the left. The patient tolerated the procedure well without signs or symptoms of complications prior to transfer to the recovery area continued monitoring without incident. Post-procedure, the patient was monitored initiating provocative activities to measure the amount of relief from block of the facetogenic pain. The patient reported a VAS of 7 prior to the procedure and a post-procedure VAS of 1. It has been a pleasure to assist in the diagnostic and therapeutic care of your patient. Total Fluoroscopy Time: 14 seconds Total Conscious Sedation Time: 24min POST OP INSTRUCTIONS The patient was provided with a Pain Log to complete over the next several hours and subsequent days prior to the patient's follow up with the ordering physician. If the patient has sewer and inspector relief to the solution applied, then they may be a candidate for medial branch rhizotomy. The patient is aware, was provided, once again, with a Pain Log and will follow up with the referring physician for review and clinical correlation Kenton Allen DO Complications: none
--- NOTE | 2019-05-27 16:19 | PC.NURSE ---
Pt returned post procedure at 1543. He is alert and able to transfer from w/c to chair independently. Resumed monitoring from OLIVIA Hudson
== END 2019-05-27 16:14 | disposition home or self-care (01) ==
LOC: RAD 14:14
PROVIDERS: PCP Family Medicine; Referring Provider Physical Medicine & Rehabilitation; Visit Provider Physical Medicine & Rehabilitation
DX: M47.816 Spondylosis without myelopathy or radiculopathy, lumbar region (principal); M47.817 Spondylosis without myelopathy or radiculopathy, lumbosacral region; M54.5 Low back pain
CPT/HCPCS: 64493; 64494; 99153; J2250; J3010

== ENCOUNTER → 2019-09-08 09:56 | Outpatient (CLI) | payer OTHER, SELFPAY ==
[2019-09-08 21:11] LABS: COVID19 Sendout Not Detected (Not Detect)
== END ==
PROVIDERS: PCP Family Medicine; Visit Provider Registered Nurse
DX: Z01.818 Encounter for other preprocedural examination (principal)
CPT/HCPCS: 87635

== ENCOUNTER 2019-09-11 07:15 | Outpatient (CLI) | payer OTHER, SELFPAY ==
[2019-09-11] VITALS (11 sets, daily range): BP systolic 109–166; BP diastolic 62–79; PULSE 53–61; RESP 14–16; TEMP 36.6–37; O2SAT 94–96
--- NOTE | 2019-09-11 07:22 | DI.RAD.S_ITS ---
PROCEDURE: PAIN L/S MED/LAT N RFA BILAT INDICATIONS: SPONDYLOSIS FINDINGS: Fluoroscopic spot filming was performed to verify placement of spinal needles at the bilateral L4, L5 and S1 medial branch level(s), as labeled on the films. Appropriate location(s) of the needle tip(s) was confirmed by injection of iodinated contrast. IMPRESSION: Successful needle tip localization for bilateral L4, L5, and S1 medial branch rhizotomy procedures (6 total). Dictated by: Peter Jolly M.D. on 09/11/2019 at 10:06 Approved by: Peter Jolly M.D. on 09/11/2019 at 10:07
[2019-09-11] MEDS: MIDAZOLAM 5 MG/5 ML VIAL IV (08:44)
[2019-09-11] MEDS: fentaNYL 100 MCG/2 ML INJ 50 MCG IV (08:45)
[2019-09-11] MEDS: LIDOCAINE 1% 20 ML 10 ML INJ (08:56)
[2019-09-11] MEDS: BUPIVACAINE 0.5% (PF) VIAL 5 ML INJ (08:56)
--- NOTE | 2019-09-11 09:19 | PC.NURSE ---
ASSISTING PT OFF TABLE AND TRANSPORTING TO POST PROC AREA IN STABLE CONDITION. PASSING RN CARE OFF TO OLIVIA HURST.
--- NOTE | 2019-09-11 09:24 | P.PCN_ITS ---
Procedures Date/Time Date of procedure: 09/11/19 Time of procedure: 09:24 General Procedure description: PREOP DIAGNOSIS 1. RECALCITRANT FACET ARTHROPATHY, POST OP DIAGNOSIS 1. RECALCITRANT FACET ARTHROPATHY PROCEDURES 1. BILATERAL L4 AND L5 MEDIAL BRANCH RADIOFREQUENCY NEUROTOMY AND S1 DORSAL RAMUS BRANCH RADIOFREQUENCY NEUROTOMY, PHYSICIAN: Kenton Allen DO INDICATIONS: Arvid is referred by Dr. Bowser for treatment of facet arthropathy. DESCRIPTION OF PROCEDURE Bilateral L4 and L5 medial branch radiofrequency neurotomy and bilateral S1 dorsal ramus radiofrequency neurotomy under fluoroscopy with conscious sedation. The patient is well known to this clinic having undergone previous facet injections with good but temporary relief. The patient has experienced appropriate, concordant relief with previous facet and median branch blocks but the patient's pain has been recalcitrant to further conservative measures. Therefore, based upon the patient's relief and persistent symptoms, the patient is considered an appropriate candidate for facet rhizotomy. All of the patient's questions regarding the risks versus benefits of the procedure, including, but not limited to, bleeding, infection, temporary as well as lasting nerve injury, paralysis, stroke, and , as well treatment alternatives were answered to satisfaction. After obtaining informed consent, denial of pertinent drug allergies, as well as being made aware of the potential risks of bleeding, infection, spinal cord trauma, paralysis, temporary and permanent nerve damage, seizure, stroke, and possible , the patient was brought to the fluoroscopy suite and positioned prone on the fluoroscopy table. The lumbar region was prepped with Betadine and covered with a fenestrated drape in the usual sterile fashion. Appropriate monitors applied including pulse oximeter, pulse, and blood pressure for regular monitoring throughout the procedure. After review of previous anaesthesic history and IV conscious sedation the patient was deemed safe to proceed with todays procedure with IV conscious sedation as ASA class II designation. Safety time-out was performed to confirm patient ID, procedure to be performed and site of procedure. IV sedation was accomplished with a combination of 2mg of Versed and 50mcg of Fentanyl administered by the RN after DO order, titrated to patient comfort during the course of the procedure while the patient remained responsive to all verbal commands. After local infiltration using 1% lidocaine, under fluoroscopic guidance, a 10- cm RF insulated needle with a 10-mm active tip was positioned parallel to the junction of the right sacral ala and the superior articulating process where the S1 dorsal ramus resides. Needle placement was confirmed with motor stimulation of .5v on the right which produced local stimulation without radicular component. The stimulation was then increased to 1.5v with, once again, only local multifidus stimulation without radicular component. The needle was then removed and the identical procedure was performed along the length of the right L5 medial branch with motor stimulation at .7v on the right. The identical procedure was once again performed along the length of the right L4 medial branch with motor stimulation of .5v on the right. The medial branches were then anesthetised with 0.5% Marcaine. This was then followed by two discreet lesions performed at 80 degrees Celsius for 90 seconds each. The identical procedure was repeated on the left. The patient tolerated the procedure well without signs or symptoms of complications prior to transfer to the recovery area continued monitoring without incident. The patient was then transferred to the recovery area where they were observed for an appropriate period of time after the injection. The patient reported a VAS score of 9 prior to the procedure and a post-procedure VAS of 0. Total Fluoroscopy Time: 16 seconds Total Conscious Sedation Time: 34min POST OP INSTRUCTIONS The patient was provided a Pain Log to continue to record the patient's response to the target-specific procedure prior to the patient's follow-up visit with the referring physician. Additionally, specific post-injection care instructions and a contact number to our office were provided if concerns arise regarding possible complications associated with the procedure are suspected. Kenton Allen DO Complications: none
== END 2019-09-11 09:00 | disposition home or self-care (01) ==
LOC: RAD 07:19
PROVIDERS: PCP Family Medicine; Referring Provider Physical Medicine & Rehabilitation; Visit Provider Physical Medicine & Rehabilitation
DX: M47.816 Spondylosis without myelopathy or radiculopathy, lumbar region (principal); M47.817 Spondylosis without myelopathy or radiculopathy, lumbosacral region
CPT/HCPCS: 64635; 64636; 99152; 99153; J2250; J3010

== ENCOUNTER → 2019-10-03 13:54 | Outpatient (CLI) | payer OTHER, SELFPAY ==
--- NOTE | 2019-10-03 13:56 | DI.MRI.S_ITS ---
PROCEDURE: MR CERVICAL SPINE WO CON INDICATIONS: Chronic progressive neck pain status post fusion TECHNIQUE: Noncontrast sagittal T1 spin echo and T2 fast spin echo, sagittal STIR, foraminal oblique sagittal T2 fast spin echo, and axial gradient echo or T2 fast spin echo through the cervical spine. COMPARISON: [facility], MR, MR CERVICAL SPINE WITHOUT CONTRAST, 03/09/2017, 11:47. FINDINGS: Image quality: Excellent. Alignment and Curvature: Straightening of the normal cervical lordosis. Chronic osseous fusion of C5 and C6 vertebral bodies. Trace retrolisthesis of C4 on C5. Bone Marrow: Multilevel degenerative endplate sclerosis and spurring. Diffuse facet arthropathy. Spinal Cord: Visualized spinal cord has normal size and signal. No cerebellar tonsillar herniation. Paraspinous Soft Tissues: No paravertebral masses. Prevertebral soft tissues are normal in thickness. C2-C3: No canal narrowing. No left foraminal stenosis. Severe right foraminal narrowing with nerve root compression. This appears progressed on the right since the prior study C3-C4: Minimal canal narrowing. Mild right foraminal narrowing with slight nerve root compression. Severe left foraminal stenosis with nerve root compression. No definite interval change C4-C5: Moderate canal narrowing. Severe right foraminal stenosis with nerve root compression. Moderate left foraminal stenosis also with nerve root compression. No interval change C5-C6: No canal narrowing. Mild right foraminal stenosis. Moderate left foraminal narrowing with slight nerve root compression. No interval change C6-C7: Mild canal narrowing. Mild to moderate right foraminal narrowing. Mild left foraminal stenosis. No interval change C7-T1: Mild canal narrowing. Mild right foraminal narrowing with slight nerve root compression. No left foraminal stenosis. No interval change IMPRESSION: Multilevel severe spondylosis and facet arthropathy as detailed above, with slight interval progression in right C2-C3 foraminal narrowing. Chronic osseous fusion of C5 and C6 as before Straightening of the normal cervical lordosis Trace retrolisthesis of C4 on C5, unchanged. Dictated by: Jaspreet Harmon M.D. on 10/03/2019 at 16:58 Approved by: Jaspreet Harmon M.D. on 10/03/2019 at 17:38
== END ==
PROVIDERS: PCP Family Medicine; Referring Provider Physical Medicine & Rehabilitation; Visit Provider Physical Medicine & Rehabilitation
DX: M54.2 Cervicalgia (principal); M47.22 Other spondylosis with radiculopathy, cervical region; Z98.1 Arthrodesis status
CPT/HCPCS: 72141

== ENCOUNTER → 2019-12-22 09:39 | Outpatient (CLI) | payer OTHER, SELFPAY ==
[2019-12-24 06:15] LABS: COVID19 Sendout Not Detected (Not Detect)
== END ==
PROVIDERS: PCP Family Medicine; Visit Provider Physician Assistant
DX: Z11.59 Encounter for screening for other viral diseases (principal)
CPT/HCPCS: 87635

== ENCOUNTER 2019-12-25 09:11 | Outpatient (CLI) | payer OTHER, SELFPAY ==
[2019-12-25] VITALS (10 sets, daily range): BP systolic 124–167; BP diastolic 63–82; PULSE 58–70; RESP 15–23; TEMP 36.1; O2SAT 92–96
--- NOTE | 2019-12-25 09:13 | DI.RAD.S_ITS ---
PROCEDURE: PAIN C/T FACET INJ/BLK 1ST [facility]A COMPARISON: [facility], XA, PAIN L/S MED/LAT N RFA BILAT, 09/11/2019, 7:45. [facility], MR, MR CERVICAL SPINE WO CON, 10/03/2019, 14:32. INDICATIONS: SPINAL STENOSIS FINDINGS: Fluoroscopic images were obtained during a procedure and submitted for interpretation following the completion of the procedure. On these images, bilateral spinal needles are seen at the C3-4 and C4-C5 levels, as labeled on the images. The appropriate positions of the tips of the needles were confirmed with injection of a small amount of iodinated contrast. IMPRESSION: Intraprocedural examination within normal limits. Dictated by: Evens Bettencourt M.D. on 12/25/2019 at 11:05 Approved by: Evens Bettencourt M.D. on 12/25/2019 at 11:06
[2019-12-25] MEDS: fentaNYL 100 MCG/2 ML INJ 50 MCG IV (10:02)
[2019-12-25] MEDS: MIDAZOLAM 5 MG/5 ML VIAL IV (10:02)
[2019-12-25] MEDS: IOPAMIDOL 15 ML VIAL 3 ML INJ (10:24)
[2019-12-25] MEDS: DEXAMETHASONE 10 MG/ML VIAL 30 MG INJ (10:24)
[2019-12-25] MEDS: LIDOCAINE 1% 20 ML 5 ML INJ (10:24)
[2019-12-25] MEDS: BUPIVACAINE 0.5% (PF) VIAL 5 ML INJ (10:25)
--- NOTE | 2019-12-25 10:32 | P.PCN_ITS ---
Date/Time/Diagnoses Date of procedure: 12/25/19 Time of procedure: 10:32 Pre-procedure diagnosis: 1. FACET ARTHROPATHY 2. AXIAL NECK PAIN Post-procedure diagnosis: same Procedure Notes Procedure: 1. FLUOROSCOPICALLY GUIDED, CONTRAST-CONTROLLED BILATERAL C3/4, C4/5 FACET JOINT INJECTIONS WITH CONSCIOUS SEDATION. Indications: Arvid is referred by Dr. Bowser for treatment of Axial Neck Pain Physician: Kenton Allen Total Fluoroscopy time (seconds): 16 Total sedation minutes: 20 Complications: none Procedure in detail & Post-procedure care: DESCRIPTION OF PROCEDURE Fluoroscopically guided, contrast-controlled BILATERAL C3/4, C4/5 facet joint injections with conscious sedation. Following review of allergy and review of potential side effects and complications, including, but not necessarily limited to, infection, allergic reaction, local tissue breakdown, stroke, temporary or permanent nerve injury and paralysis, the patient indicated that the patient understood and agreed to proceed. An informed consent document was signed by the patient, witnessed by a nurse, and placed in the patient's chart. Additionally, other treatment options including medications, modalities, and physical therapy were reviewed with the patient. After review of previous anaesthesic history and IV conscious sedation the patient was deemed safe to proceed with today?s procedure with IV conscious sedation as ASA class II designation. Safety time-out was performed to confirm patient ID, procedure to be performed and site of procedure. IV sedation was accomplished with a combination of 2mg of Versed and 50mcg of Fentanyl was administered by the RN after DO order, titrated to patient comfort during the course of the procedure while the patient remained responsive to all verbal commands In the prone position, following sterile prep and drape of the cervical spine region, the posterior aspect of the right C3/4, C4/5 facet joints were identified fluoroscopically. The skin was anesthetized via a 25-gauge 1.5-inch needle with 1% lidocaine solution into the corresponding facet joints. At this point, a 25-gauge 2.5-inch spinal needle was atraumatically introduced and advanced under fluoroscopic guidance into the corresponding facet joints. Following negative aspiration, injections of approximately 0.2-cc of Isovue 200 confirmed interarticular placement without vascular uptake. At this point, a total of 1cc including 0.5 cc or 5mg of dexamethasone combined with 0.5cc of 1% lidocaine solution was injected without complication into each of the corresponding facet joints. Attention was then refocused to the left where the identical procedure was replicated. The patient tolerated the procedure well without signs or symptoms of complications prior to transfer to the recovery area continued monitoring without incident. The patient was then transferred to the recovery area where they were observed for an appropriate period of time after the injection. The patient reported a VAS score of 7 prior to the procedure and a post- procedure VAS of 0. POST OP INSTRUCTIONS They were provided a Pain Log to continue to record their response to the target-specific procedure prior to their follow-up visit with their referring physician. Additionally, specific post-injection care instructions and a contact number to our office were provided if concerns arise regarding possible complications associated with the procedure are suspected.
== END 2019-12-25 10:52 | disposition home or self-care (01) ==
LOC: RAD 09:12
PROVIDERS: PCP Family Medicine; Referring Provider Physical Medicine & Rehabilitation; Visit Provider Physical Medicine & Rehabilitation
DX: M47.812 Spondylosis without myelopathy or radiculopathy, cervical region (principal); M54.2 Cervicalgia; R51 Headache; Z98.1 Arthrodesis status
CPT/HCPCS: 64490; 64491; 99152; J1100; J2250; J3010

== ENCOUNTER → 2020-03-03 11:04 | Outpatient (CLI) | payer OTHER, SELFPAY ==
--- NOTE | 2020-03-03 11:05 | DI.RAD.S_ITS ---
PROCEDURE: XR CERVICAL SPINE 4V OR 5V INDICATIONS: neck pain TECHNIQUE: 5 views of the cervical spine acquired. COMPARISON: [facility], CR, XR CERVICAL SPINE 4V OR 5V, 07/19/2018, 13:51. FINDINGS: Bones: No fractures or dislocations to the T1 level. Oblique images demonstrate no bony foraminal stenoses. The degenerative disc disease previously present seen 07/19/18 has not appreciably worsened. There is a fusion between C5 and C6, also previously present. Osseous fusion in this area likely represents postoperative change. Osteophytic spurring is present both anteriorly and to a lesser degree posteriorly to the degree that spinal and foraminal stenosis would be expected. The oblique view show moderate foraminal stenosis from C3 inferiorly, bilaterally. Soft tissues: No prevertebral soft tissue swelling. IMPRESSION: Degenerative disc disease and facet osteoarthritis that is moderately severe overall but not changed from June of last year. C5-C6 inter osseous fusion presumably is postoperative from the past. Dictated by: Peter Jolly M.D. on 03/03/2020 at 11:57 Approved by: Peter Jolly M.D. on 03/03/2020 at 11:59
== END ==
PROVIDERS: PCP Family Medicine; Referring Provider Physical Medicine & Rehabilitation; Visit Provider Physical Medicine & Rehabilitation
DX: M47.22 Other spondylosis with radiculopathy, cervical region (principal); M50.10 Cervical disc disorder with radiculopathy, unspecified cervical region; R51.9 Headache, unspecified; M47.816 Spondylosis without myelopathy or radiculopathy, lumbar region; M43.28 Fusion of spine, sacral and sacrococcygeal region; Z98.1 Arthrodesis status
CPT/HCPCS: 72050; 99214

== ENCOUNTER → 2020-03-23 09:24 | Outpatient (CLI) | payer OTHER, SELFPAY ==
[2020-03-23 11:23] LABS: COVID19 -Nasal RAPID Negative (Negative)
== END ==
PROVIDERS: PCP Family Medicine; Visit Provider Physical Medicine & Rehabilitation
DX: Z01.812 Encounter for preprocedural laboratory examination (principal); Z11.59 Encounter for screening for other viral diseases
CPT/HCPCS: 87635; C9803

== ENCOUNTER 2020-03-25 14:53 | Outpatient (CLI) | payer OTHER, SELFPAY ==
[2020-03-25] VITALS (8 sets, daily range): BP systolic 103–144; BP diastolic 59–82; PULSE 70–78; RESP 14–21; TEMP 36.1; O2SAT 92–98
--- NOTE | 2020-03-25 15:24 | DI.RAD.S_ITS ---
PROCEDURE: PAIN L/S FACET INJ/BLK 1ST ALMA ROSA COMPARISON: [facility], , PAIN L/S FACET INJ/BLK 1ST [facility]MA ROSA, 05/27/2019, 15:22. INDICATIONS: SPONDYLOSIS FINDINGS: Fluoroscopic spot filming was performed to verify placement spinal needles at the L2, L3, and L4 levels on both sides, as labeled on the films. Appropriate location of the needle tip was confirmed by injection of iodinated contrast. IMPRESSION: Intraprocedural examination within normal limits. Dictated by: Evens Bettencourt M.D. on 03/25/2020 at 16:18 Approved by: Evens Bettencourt M.D. on 03/25/2020 at 16:18
[2020-03-25] MEDS: fentaNYL 100 MCG/2 ML INJ 50 MCG IV (15:53)
[2020-03-25] MEDS: MIDAZOLAM 5 MG/5 ML VIAL IV (15:59)
[2020-03-25] MEDS: LIDOCAINE 1% 20 ML 10 ML INJ (16:10)
[2020-03-25] MEDS: IOPAMIDOL 15 ML VIAL 3 ML INJ (16:10)
[2020-03-25] MEDS: BUPIVACAINE 0.5% (PF) VIAL 5 ML INJ (16:10)
--- NOTE | 2020-03-25 16:18 | PM.PROC.IR.1 ---
Date/Time/Diagnoses Date of procedure: 03/25/20 Time of procedure: 16:18 Pre-procedure diagnosis: 1. FACET ARTHROPATHY Post-procedure diagnosis: same Procedure Notes Procedure: 1. BILATERAL L2, L3, L4 DIAGNOSTIC MB BLOCKS Indications: Arvid is referred by Dr. Bowser for treatment of Bilateral Axial LBP. Physician: Kenton Allen Total Fluoroscopy time (seconds): 18 Total sedation minutes: 20 Complications: none Procedure in detail & Post-procedure care: DESCRIPTION OF PROCEDURE Fluoroscopically guided, contrast-controlled bilateral L2, L3, L4 medial branch blocks with 0.5cc of 0.5% Marcaine. Following review of allergy and review of potential side effects and complications, including, but not necessarily limited to, infection, allergic reaction, local tissue breakdown, nerve injury, paralysis, stroke and possible , the patient indicated that the patient understood and agreed to proceed. An informed consent document was signed by the patient, witnessed by a nurse, and placed in the patient's chart. After review of previous anaesthesic history and IV conscious sedation the patient was deemed safe to proceed with today's procedure with IV conscious sedation as ASA class II designation. Safety time-out was performed to confirm patient ID, procedure to be performed and site of procedure. IV sedation was accomplished with a combination of 2mg of Versed and 50mcg of Fentantyl was administered by the RN after DO order, titrated to patient comfort during the course of the procedure while the patient remained responsive to all verbal commands In the prone position, following sterile prep and drape of the lumbar region, the right L2, L3, L4 anatomical location of the medial branch of the dorsal ramus was identified fluoroscopically. Subsequently an anesthetic skin wheal using 1% lidocaine solution was initiated at each of the anatomical spots. Subsequently then a 22-gauge 3.5-inch spinal needle was atraumatically introduced and advanced under fluoroscopic guidance at each of the corresponding sites at the right L2, L3, L4 MB. After negative aspiration, 0.2cc of Isovue 200 was injected, confirming placement without vascular or intrathecal uptake. Subsequently then 0.5cc of 0.5% Marcaine solution was injected at each of the corresponding sites at the right L2, L3, L4 medial branch locations. The identical procedure was replicated on the left. The patient tolerated the procedure well without signs or symptoms of complications. The patient tolerated the procedure well without signs or symptoms of complications prior to transfer to the recovery area continued monitoring without incident. Post-procedure, the patient was monitored initiating provocative activities to measure the amount of relief from block of the facetogenic pain. The patient reported a VAS of 7 prior to the procedure and a post-procedure VAS of 1. It has been a pleasure to assist in the diagnostic and therapeutic care of your patient. POST OP INSTRUCTIONS The patient was provided with a Pain Log to complete over the next several hours and subsequent days prior to the patient's follow up with the ordering physician. If the patient has studio artist relief to the solution applied, then they may be a candidate for medial branch rhizotomy. The patient is aware, was provided, once again, with a Pain Log and will follow up with the referring physician for review and clinical correlation
== END 2020-03-25 16:37 | disposition home or self-care (01) ==
LOC: RAD 14:53
PROVIDERS: PCP Family Medicine; Referring Provider Physical Medicine & Rehabilitation; Visit Provider Physical Medicine & Rehabilitation
DX: M47.816 Spondylosis without myelopathy or radiculopathy, lumbar region (principal); M54.5 Low back pain
CPT/HCPCS: 64493; 64494; 99152; J2250; J3010

== ENCOUNTER → 2020-06-16 09:11 | Outpatient (CLI) | payer OTHER, SELFPAY ==
--- NOTE | 2020-06-16 09:13 | DI.RAD.S_ITS ---
PROCEDURE: XR LUMBAR SPINE MIN 4V INDICATIONS: increased back pain TECHNIQUE: 5 views of the lumbar spine acquired, including flexion and extension views. COMPARISON: [facility], CR, XR LUMBAR SPINE MIN 4V, 07/19/2018, 13:55. FINDINGS: Bones: 5 nonrib-bearing vertebrae are present. Loss of lordosis which could be related to muscle spasm, rigidity or simply positional. Multilevel disc degeneration redemonstrated, severe at the L4-L5 and L5-S1 levels. Moderate L4-L5 and L5-S1 facet joint arthropathy and neural foraminal narrowing. Stable positioning of fixation screws traversing the right SI joint and fixation plate involving the pubic symphysis which is incompletely visualized.. No vertebral body compression fractures. No suspicious bony lesions. Soft tissues: Overlying bowel gas pattern is normal. No suspicious soft tissue calcifications. IMPRESSION: 1. Multilevel spondylosis similar to prior examination dated 07/19/2018 and postsurgical changes redemonstrated. Dictated by: Iggy Patel [facility] Interpreted: Venkat Cooper MD on 06/16/2020 at 9:52 Approved by: Venkat Cooper M.D. on 06/16/2020 at 11:46
== END ==
PROVIDERS: PCP Family Medicine; Referring Provider Physical Medicine & Rehabilitation; Visit Provider Physical Medicine & Rehabilitation
DX: M47.27 Other spondylosis with radiculopathy, lumbosacral region (principal); M47.26 Other spondylosis with radiculopathy, lumbar region; M47.812 Spondylosis without myelopathy or radiculopathy, cervical region; M43.28 Fusion of spine, sacral and sacrococcygeal region; Z98.1 Arthrodesis status
CPT/HCPCS: 72110; 99213

== ENCOUNTER → 2020-07-13 14:59 | Outpatient (CLI) | payer OTHER, SELFPAY ==
[2020-07-13 15:26] LABS: COVID19 -Nasal RAPID Negative (Negative)
== END ==
PROVIDERS: PCP Family Medicine; Visit Provider Physical Medicine & Rehabilitation
DX: Z20.822 Contact with and (suspected) exposure to COVID-19 (principal)
CPT/HCPCS: 87635; C9803

== ENCOUNTER 2020-07-15 10:29 | Outpatient (CLI) | payer OTHER, SELFPAY ==
[2020-07-15] VITALS (10 sets, daily range): BP systolic 98–155; BP diastolic 55–65; PULSE 61–68; RESP 14–25; TEMP 36.1; O2SAT 92–97
--- NOTE | 2020-07-15 10:31 | DI.RAD.S_ITS ---
PROCEDURE: PAIN L/S MED/LAT N RFA BILAT INDICATIONS: SPONDYLOSIS COMPARISON: [facility], , PAIN L/S MED/LAT N RFA BILAT, 09/11/2019, 7:45. FINDINGS: Fluoroscopic spot filming was performed to verify placement of spinal needles at the L2, L3, L4 level(s), as labeled on the films. Appropriate location(s) of the needle tip(s) was confirmed by injection of iodinated contrast. Dictated by: Jaspreet Harmon M.D. on 07/15/2020 at 12:21 Approved by: Jaspreet Harmon M.D. on 07/15/2020 at 12:21
[2020-07-15] MEDS: fentaNYL 100 MCG/2 ML INJ 50 MCG IV (11:23)
[2020-07-15] MEDS: LIDOCAINE 1% 20 ML INJ (11:38)
[2020-07-15] MEDS: BUPIVACAINE 0.5% (PF) VIAL 5 ML INJ (11:38)
[2020-07-15] MEDS: MIDAZOLAM 5 MG/5 ML VIAL IV (11:40)
--- NOTE | 2020-07-15 12:00 | P.PCN_ITS ---
Date/Time/Diagnoses Date of procedure: 07/15/20 Time of procedure: 12:00 Pre-procedure diagnosis: 1. RECALCITRANT FACET ARTHROPATHY Post-procedure diagnosis: same Procedure Notes Procedure: 1. BILATERAL L2, L3, L4 MEDIAL BRANCH RADIOFREQUENCY NEUROTOMY Indications: Arvid is referred by Dr. Bowser for treatment of facet arthropathy. Physician: Kenton Allen Total Fluoroscopy time (seconds): 17 Total sedation minutes: 30 Complications: none Procedure in detail & Post-procedure care: DESCRIPTION OF PROCEDURE Bilateral L2, L3 and L4 medial branch radiofrequency neurotomy The patient is well known to this clinic having undergone previous facet injections with good but temporary relief. The patient has experienced appropriate, concordant relief with previous facet and median branch blocks but the patient's pain has been recalcitrant to further conservative measures. Therefore, based upon the patient's relief and persistent symptoms, the patient is considered an appropriate candidate for facet rhizotomy. All of the patient's questions regarding the risks versus benefits of the procedure, including, but not limited to, bleeding, infection, temporary as well as lasting nerve injury, paralysis, stroke, and , as well treatment alternatives were answered to satisfaction. After obtaining informed consent, denial of pertinent drug allergies, as well as being made aware of the potential risks of bleeding, infection, spinal cord trauma, paralysis, temporary and permanent nerve damage, seizure, stroke, and possible , the patient was brought to the fluoroscopy suite and positioned prone on the fluoroscopy table. The lumbar region was prepped with Betadine and covered with a fenestrated drape in the usual sterile fashion. Appropriate monitors applied including pulse oximeter, pulse, and blood pressure for regular monitoring throughout the procedure. After review of previous anaesthesic history and IV conscious sedation the patient was deemed safe to proceed with today's procedure with IV conscious sedation as ASA class II designation. Safety time-out was performed to confirm patient ID, procedure to be performed and site of procedure. IV sedation was accomplished with a combination of 3mg of Versed and 50mcg of Fentanyl administered by the RN after DO order, titrated to patient comfort during the course of the procedure while the patient remained responsive to all verbal commands. After local infiltration using 1% lidocaine, under fluoroscopic guidance, a 10- cm RF insulated needle with a 10-mm active tip was positioned parallel to the junction of the right the superior articulating process where the L4 medial branch resides. Needle placement was confirmed with motor stimulation of .5v on the right which produced local stimulation without radicular component. The stimulation was then increased to 2v with, once again, only local multifidus stimulation without radicular component. The needle was then removed and the identical procedure was performed along the length of the right L3 medial branch with motor stimulation at .7v on the right. The identical procedure was once again performed along the length of the right L2 and medial branch with motor stimulation of .5v on the right. The medial branches were then anesthetised with 0.5% marcaine. This was then followed by two discreet lesions performed at 80 degrees Celsius for 90 seconds each. The identical procedures were repeated on the left. The patient tolerated the procedure well without signs or symptoms of complications prior to transfer to the recovery area continued monitoring without incident. The patient was then transferred to the recovery area where they were observed for an appropriate period of time after the injection. The patient reported a VAS score of 9 prior to the procedure and a post-procedure VAS of 0. POST OP INSTRUCTIONS The patient was provided a Pain Log to continue to record the patient's response to the target-specific procedure prior to the patient's follow-up visit with the referring physician. Additionally, specific post-injection care instructions and a contact number to our office were provided if concerns arise regarding possible complications associated with the procedure are suspected.
== END 2020-07-15 12:14 | disposition home or self-care (01) ==
LOC: RAD 10:29
PROVIDERS: PCP Family Medicine; Referring Provider Family Medicine; Visit Provider Physical Medicine & Rehabilitation
DX: M47.816 Spondylosis without myelopathy or radiculopathy, lumbar region (principal)
CPT/HCPCS: 64635; 64636; 99152; 99153; J2250; J3010

== ENCOUNTER → 2020-08-30 13:17 | Outpatient (CLI) | payer OTHER, SELFPAY ==
[2020-08-30 20:08] LABS: COVID19 -Nasal RAPID Negative (Negative)
== END ==
PROVIDERS: PCP Family Medicine; Visit Provider Physical Medicine & Rehabilitation
DX: Z20.822 Contact with and (suspected) exposure to COVID-19 (principal)
CPT/HCPCS: 87635; C9803

== ENCOUNTER 2020-08-31 14:08 | Outpatient (CLI) | payer OTHER, SELFPAY ==
[2020-08-31] VITALS (9 sets, daily range): BP systolic 134–172; BP diastolic 58–82; PULSE 63–78; RESP 16–22; TEMP 35.9; O2SAT 92–96
--- NOTE | 2020-08-31 14:11 | DI.RAD.S_ITS ---
PROCEDURE: PAIN L INTERLAMINAR/CAUDAL INJ INDICATIONS: SPONDYLOSIS COMPARISON: None. FINDINGS: Fluoroscopic spot filming was performed to verify placement of spinal needles at the L4-L5 level(s), as labeled on the films. Appropriate location(s) of the needle tip(s) was confirmed by injection of iodinated contrast. Dictated by: Jaspreet Harmon M.D. on 08/31/2020 at 16:08 Approved by: Jaspreet Harmon M.D. on 08/31/2020 at 16:08
[2020-08-31] MEDS: MIDAZOLAM 5 MG/5 ML VIAL IV (14:37)
[2020-08-31] MEDS: fentaNYL 100 MCG/2 ML INJ 50 MCG IV (14:37)
[2020-08-31] MEDS: BUPIVACAINE 0.25% (PF) VIAL 2 ML INJ (14:41)
[2020-08-31] MEDS: methylPREDNISolone acetate 80 MG/ML VIAL INJ (14:42)
[2020-08-31] MEDS: DEXAMETHASONE 10 MG/ML VIAL 20 MG INJ (14:42)
[2020-08-31] MEDS: IOPAMIDOL 15 ML VIAL 3 ML INJ (14:42)
--- NOTE | 2020-08-31 14:53 | P.PCN_ITS ---
Date/Time/Diagnoses Date of procedure: 08/31/20 Time of procedure: 14:53 Pre-procedure diagnosis: 1. HNP WITH RADICULAR FEATURES, 2. MULTILEVEL CENTRAL STENOSIS, Post-procedure diagnosis: same Procedure Notes Procedure: 1. FLUOROSCOPICALLY GUIDED CONTRAST CONTROLLED INTERLAMINAR EPIDURAL STEROID INJECTION -L4/5 Indications: Arvid is referred by Dr. Bowser for treatment of Bilateral Foraminal Stenosis R>L LE symptoms. Physician: Kenton Allen Total Fluoroscopy time (seconds): 6 Total sedation minutes: 9 Complications: none Procedure in detail & Post-procedure care: FINDINGS Multilevel Central Spinal Stenosis with Nerve Root Compression DESCRIPTION OF PROCEDURE Fluoroscopically guided, contrast-controlled L4/5 translaminar epidural steroid injection. Following review of allergy and review of potential side effects and complications, including, but not necessarily limited to, infection, allergic reaction, local tissue breakdown, temporary as well as permanent nerve injury, paralysis, stroke and possible , the patient indicated that the patient understood and agreed to proceed. An informed consent document was signed by the patient, witnessed by a nurse, and placed in the patient's chart. Additionally, other treatment options including modalities, medications, and physical therapy were reviewed with the patient. After review of previous anaesthesic history and IV conscious sedation the patient was deemed safe to proceed with today?s procedure with IV conscious sedation as ASA class II designation. Safety time-out was performed to confirm patient ID, procedure to be performed and site of procedure. IV sedation was accomplished with a combination of 2mg of Versed and 50mcg of Fentanyl was administered by the RN after DO order, titrated to patient comfort during the course of the procedure while the patient remained responsive to all verbal commands In the prone position, following sterile prep and drape of the lumbar region, the L4/5 translaminar space was identified fluoroscopically. The skin was anesthetized via a 25-gauge, 1.5inch needle with 1% lidocaine solution. At this point, a 22-gauge short bevel spinal needle was atraumatically introduced and advanced under fluoroscopic guidance into the region of the L4/5 translaminar space. Depth was confirmed on lateral view. Radiological data, including multiple fluoroscopic views of the lumbar spine, reveal a spinal needle at the L4/5 translaminar space. Lateral views then show placement of the needle in the epidural space. Subsequent views show contrast material flowing superiorly and inferiorly in the epidural space. No vascular or intrathecal uptake is observed. At this point, using loss of resistance technique with saline and air, the epidural space was entered. This was confirmed following negative aspiration with injection of approximately 1.5cc of Isovue 200, showing excellent epidural flow without vascular or intrathecal uptake. At this point, 1cc of 1% lidocaine solution combined with 3cc or 20mg of dexamethasone and 80mg Depo Medrol was injected without incident. The patient tolerated the procedure well without signs or symptoms of complicati ons prior to transfer to the recovery area continued monitoring without incident. The patient was then transferred to the recovery area where they were observed for an appropriate period of time after the injection. The patient reported a VAS score of 6 prior to the procedure and a post- procedure VAS of 0. POST OP INSTRUCTIONS The patient was provided a Pain Log to continue to record their response to the target-specific procedure prior to follow-up visit with their referring physician. Additionally, specific post-injection care instructions and a contact number to our office were provided if concerns arise regarding possible complications associated with the procedure are suspected.
== END 2020-08-31 15:25 | disposition home or self-care (01) ==
LOC: RAD 14:11
PROVIDERS: PCP Family Medicine; Referring Provider Physical Medicine & Rehabilitation; Visit Provider Physical Medicine & Rehabilitation
DX: M51.16 Intervertebral disc disorders with radiculopathy, lumbar region (principal); M48.061 Spinal stenosis, lumbar region without neurogenic claudication
CPT/HCPCS: 62323; J1040; J1100; J2250; J3010

== ENCOUNTER → 2020-11-29 14:18 | Outpatient (CLI) | payer OTHER, SELFPAY ==
--- NOTE | 2020-11-29 14:19 | DI.RAD.S_ITS ---
PROCEDURE: XR KNEE RT 3V INDICATIONS: Right knee DJD TECHNIQUE: 3 views of the knee were acquired. COMPARISON: None. FINDINGS: Bones: No fractures or dislocations. No suspicious bony lesions. Severe narrowing of the medial femoral tibial joint and tricompartmental periarticular osteophyte formation. Soft tissues: Small joint effusion. No suspicious soft tissue calcifications. IMPRESSION: Small joint effusion and tricompartmental knee joint degeneration, severe involving the medial femorotibial joint. Dictated by: Iggy Patel [facility] Interpreted: Mahnaz Golden MD on 11/29/2020 at 15:26 Transcribed by: CHA on 11/29/2020 at 15:26 Approved by: Mahnaz Golden M.D. on 11/29/2020 at 16:33
== END ==
PROVIDERS: PCP Family Medicine; Referring Provider Physical Medicine & Rehabilitation; Visit Provider Physical Medicine & Rehabilitation
DX: M17.11 Unilateral primary osteoarthritis, right knee (principal); M25.461 Effusion, right knee; M47.812 Spondylosis without myelopathy or radiculopathy, cervical region; M43.28 Fusion of spine, sacral and sacrococcygeal region; M47.27 Other spondylosis with radiculopathy, lumbosacral region
CPT/HCPCS: 73562; 99213

== ENCOUNTER → 2024-08-13 12:31 | Outpatient (CLI) | payer OTHER, SELFPAY ==
--- NOTE | 2024-08-13 12:33 | DI.RAD.S_ITS ---
PROCEDURE: XR LUMBAR SPINE MIN 4V INDICATIONS: BACK PAIN TECHNIQUE: 5 views of the lumbar spine were acquired, including bilateral oblique views. COMPARISON: [facility], , XR LUMBAR SPINE MIN 4V, 06/16/2020, 9:32. FINDINGS: Bones: 5 nonrib-bearing vertebrae are present. There is straightening of normal lumbar lordosis. No vertebral body compression fractures. Moderate to severe degenerative endplate changes are noted throughout lumbar spine. No suspicious bony lesions. Postsurgical changes are noted in right sacroiliac joint with surgical hardware in place. No evidence of hardware loosening or failure. Soft tissues: Overlying bowel gas pattern is normal. No suspicious soft tissue calcifications. Oblique images: No pars defects. Bilateral bony foraminal stenosis at T12-L1, L1-2, L4-5 and L5-S1 levels are seen, oblique views. 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 No acute compression fracture or spondylolisthesis. Dictated by: Venkat Cooper M.D. on 08/13/2024 at 13:47 Approved by: Venkat Cooper M.D. on 08/13/2024 at 13:49
== END ==
PROVIDERS: PCP Internal Medicine; Referring Provider Physical Medicine & Rehabilitation; Visit Provider Physical Medicine & Rehabilitation
DX: M47.27 Other spondylosis with radiculopathy, lumbosacral region (principal); M47.26 Other spondylosis with radiculopathy, lumbar region; M51.17 Intervertebral disc disorders with radiculopathy, lumbosacral region; M51.16 Intervertebral disc disorders with radiculopathy, lumbar region; M48.061 Spinal stenosis, lumbar region without neurogenic claudication; M48.07 Spinal stenosis, lumbosacral region; M47.22 Other spondylosis with radiculopathy, cervical region; M17.0 Bilateral primary osteoarthritis of knee; M43.28 Fusion of spine, sacral and sacrococcygeal region; Z98.1 Arthrodesis status
CPT/HCPCS: 72110; 99214

== ENCOUNTER 2024-08-26 09:32 | Outpatient (CLI) | payer OTHER, SELFPAY ==
[2024-08-26] VITALS (8 sets, daily range): BP systolic 127–174; BP diastolic 62–79; PULSE 67–79; RESP 16–23; TEMP 36.1; O2SAT 93–96
[2024-08-26] MEDS: MIDAZOLAM 2 MG/2 ML VIAL IV (11:20)
[2024-08-26] MEDS: BETAMETHASONE 30 MG/5 ML MDV 12 MG INJ (11:23)
[2024-08-26] MEDS: iopamidoL 15 ML VIAL 3 ML INJ (11:23)
[2024-08-26] MEDS: DEXAMETHASONE 10 MG/ML VIAL INJ (11:24)
[2024-08-26] MEDS: BUPIVACAINE 0.25% (PF) VIAL 2 ML INJ (11:24)
--- NOTE | 2024-08-26 11:36 | P.PCN_ITS ---
Date/Time/Diagnoses Date of procedure: 08/26/24 Time of procedure: 11:37 Pre-procedure diagnosis: 1. HNP WITH RADICULAR FEATURES, 2. MULTILEVEL CENTRAL STENOSIS, Post-procedure diagnosis: same Procedure Notes Procedure: 1. FLUOROSCOPICALLY GUIDED CONTRAST CONTROLLED INTERLAMINAR EPIDURAL STEROID INJECTION - L5/S1 Indications: Arvid is referred by Dr. Fisher for treatment of Bilateral Foraminal Stenosis L>R LE symptoms. Physician: Kenton Allen Total Fluoroscopy time (seconds): 5 Total sedation minutes: 10 Complications: none Procedure in detail & Post-procedure care: FINDINGS Multilevel Central Spinal Stenosis with Nerve Root Compression DESCRIPTION OF PROCEDURE Fluoroscopically guided, contrast-controlled L5/S1 translaminar epidural steroid injection. Following review of allergy and review of potential side effects and complications, including, but not necessarily limited to, infection, allergic reaction, local tissue breakdown, temporary as well as permanent nerve injury, paralysis, stroke and possible , the patient indicated that the patient understood and agreed to proceed. An informed consent document was signed by the patient, witnessed by a nurse, and placed in the patient's chart. Additionally, other treatment options including modalities, medications, and physical therapy were reviewed with the patient. After review of previous anaesthesic history and IV conscious sedation the patient was deemed safe to proceed with today?s procedure with IV conscious sedation as ASA class II designation. Safety time-out was performed to confirm patient ID, procedure to be performed and site of procedure. IV sedation was accomplished with a combination of 2mg of Versed administered by the RN after DO order, titrated to patient comfort during the course of the procedure while the patient remained responsive to all verbal commands. In the prone position, following sterile prep and drape of the lumbar region, the L5/S1 translaminar space was identified fluoroscopically. The skin was anesthetized via a 25-gauge, 1.5-inch needle with 1% lidocaine solution. At this point, a 22-gauge short bevel spinal needle was atraumatically introduced and advanced under fluoroscopic guidance into the region of the L5/S1 translaminar space. Depth was confirmed on lateral view. Radiological data, including multiple fluoroscopic views of the lumbar spine, reveal a spinal needle at the L5/S1 translaminar space. Lateral views then show placement of the needle in the epidural space. Subsequent views show contrast material flowing superiorly and inferiorly in the epidural space. No vascular or intrathecal uptake is observed. At this point, using loss of resistance technique with saline and air, the epidural space was entered. This was confirmed following negative aspiration with injection of approximately 1.5cc of Isovue 200, showing excellent epidural flow without vascular or intrathecal uptake. At this point, 1 cc of 1% lidocain e solution combined with 2cc or 10mg of dexamethasone and 6mg of betamethasone was injected without incident. The patent tolerated the procedure without signs of symptoms of complications prior to transfer to the recovery area for further monitoring. The patient was then transferred to the recovery area where they were observed for an appropriate period of time after the injection. The patient reported a VAS score of 6 prior to the procedure and a post-procedure VAS of 0. POST OP INSTRUCTIONS The patient was provided a Pain Log to continue to record their response to the target-specific procedure prior to follow-up visit with their referring physician. Additionally, specific post-injection care instructions and a contact number to our office were provided if concerns arise regarding possible complications associated with the procedure are suspected.
== END 2024-08-26 11:55 | disposition home or self-care (01) ==
PROVIDERS: PCP Internal Medicine; Referring Provider Internal Medicine; Visit Provider Physical Medicine & Rehabilitation
DX: M51.17 Intervertebral disc disorders with radiculopathy, lumbosacral region (principal); M48.07 Spinal stenosis, lumbosacral region
CPT/HCPCS: 62323; 99152; J0702; J1100; J2250; J3490

== ENCOUNTER 2025-01-01 09:54 | Outpatient (CLI) | payer OTHER, SELFPAY ==
[2025-01-01] VITALS (9 sets, daily range): BP systolic 151–172; BP diastolic 61–82; PULSE 68–77; RESP 14–20; TEMP 36.1; O2SAT 92–98
[2025-01-01] MEDS: MIDAZOLAM 2 MG/2 ML VIAL IV ×2 (11:27→11:33)
[2025-01-01] MEDS: LIDOCAINE 1% 20 ML 5 ML INJ (11:32)
--- NOTE | 2025-01-01 11:48 | PM.PROC.IR.1 ---
Date/Time/Diagnoses Date of procedure: 01/01/25 Time of procedure: 11:48 Pre-procedure diagnosis: 1. FACET ARTHROPATHY Post-procedure diagnosis: same Procedure Notes Procedure: 1. BILATERAL- L4, L5 and S1 DIAGNOSTIC MB BLOCKS with LA Anesthetic Indications: Arvid is referred by Dr. Fisher for treatment of Bilateral Axial LBP. Physician: Kenton Allen Total Fluoroscopy time (seconds): 8 Total sedation minutes: 16 Complications: none Procedure in detail & Post-procedure care: DESCRIPTION OF PROCEDURE Fluoroscopically guided, contrast-controlled bilateral L4, L5 and S1 medial branch blocks with 0.5cc of 0.5% Marcaine. Following review of allergy and review of potential side effects and complications, including, but not necessarily limited to, infection, allergic reaction, local tissue breakdown, nerve injury, paralysis, stroke and possible , the patient indicated that the patient understood and agreed to proceed. An informed consent document was signed by the patient, witnessed by a nurse, and placed in the patient's chart. After review of previous anaesthesic history and IV conscious sedation the patient was deemed safe to proceed with today's procedure with IV conscious sedation as ASA class II designation. Safety time-out was performed to confirm patient ID, procedure to be performed and site of procedure. IV sedation was accomplished with a combination of 4mg of Versed was administered by the RN after DO order, titrated to patient comfort during the course of the procedure while the patient remained responsive to all verbal commands In the prone position, following sterile prep and drape of the lumbar region, the right L4, L5 and S1 anatomical location of the medial branch of the dorsal ramus was identified fluoroscopically. Subsequently an anesthetic skin wheal using 1% lidocaine solution was initiated at each of the anatomical spots. Subsequently then a 22-gauge 3.5-inch spinal needle was atraumatically introduced and advanced under fluoroscopic guidance at each of the corresponding sites at the right L4, L5 and S1 MB. After negative aspiration, 0.2cc of Isovue 200 was injected, confirming placement without vascular or intrathecal uptake. Subsequently then 0.5cc of 0.5% Marcaine solution was injected at each of the corresponding sites at the right L4, L5 and S1 medial branch locations. The identical procedure was replicated on the left. The patient tolerated the procedure well without signs or symptoms of complications prior to transfer to the recovery area continued monitoring without incident. Post-procedure, the patient was monitored initiating provocative activities to measure the amount of relief from block of the facetogenic pain. The patient reported a VAS of 7 prior to the procedure and a post-procedure VAS of 1. It has been a pleasure to assist in the diagnostic and therapeutic care of your patient. POST OP INSTRUCTIONS The patient was provided with a Pain Log to complete over the next several hours and subsequent days prior to the patient's follow up with the ordering physician. If the patient has jacquard loom heddles tier relief to the solution applied, then they may be a candidate for medial branch rhizotomy. The patient is aware, was provided, once again, with a Pain Log and will follow up with the referring physician for review and clinical correlation
== END 2025-01-01 12:10 | disposition home or self-care (01) ==
LOC: RAD 09:54
PROVIDERS: PCP Internal Medicine; Referring Provider Physical Medicine & Rehabilitation; Visit Provider Physical Medicine & Rehabilitation
DX: M47.816 Spondylosis without myelopathy or radiculopathy, lumbar region (principal); M47.817 Spondylosis without myelopathy or radiculopathy, lumbosacral region
CPT/HCPCS: 64493; 64494; 99152; J2250